=== PATIENT | female | born 1995 | race Caucasian/White ===

== ENCOUNTER 2018-03-30 01:28 | Emergency (ER) | payer MEDICARE ==
[~2018-03-30] VITALS: Ht 149.9 cm; Wt 84.4 kg
[2018-03-30 01:38] VITALS: Ht 149.9 cm; Wt 84.4 kg
[2018-03-30 02:20] VITALS: BP 132/84
== END 2018-03-30 02:21 | disposition home or self-care (01) ==
LOC: D.ER 01:28
DX: S01.81XA Laceration without foreign body of other part of head, initial encounter (principal); W01.190A Fall on same level from slipping, tripping and stumbling with subsequent striking against furniture, initial encounter; Y93.89 Activity, other specified; Y92.019 Unspecified place in single-family (private) house as the place of occurrence of the external cause

== ENCOUNTER → 2018-08-15 15:57 | Outpatient (CLI) | payer MEDICARE | END | disposition home or self-care (01) | LOC: D.CT 15:57 | DX: R10.9 Unspecified abdominal pain (principal) ==